=== PATIENT | male | born 1965 | race Caucasian/White ===

== ENCOUNTER 2017-04-20 18:01 | Emergency (ER) | payer MEDICAID, OTHER ==
[2017-04-20 18:01] VITALS: BMI 33.2
[2017-04-20] MEDS ORDERED: Morphine 4 MG/ML VIAL IM ONE (18:56)
[2017-04-20] MEDS ORDERED: Morphine 4 MG/ML VIAL ONE (18:56)
[2017-04-20] MEDS ORDERED: Oxycodone/Acetaminophen 5/325 mg Tab PO STA (19:13)
--- NOTE | 2017-04-20 19:14 | C.PDOC ---
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 Patient denies head injury, LOC, or any other injuries at this time. Time Seen by Provider: 04/20/17 18:54 Chief Complaint (Nursing): Upper Extremity Problem/Injury History Per: Patient History/Exam Limitations: no limitations Onset/Duration Of Symptoms: Hrs (3) Current Symptoms Are (Timing): Still Present Quality: "Pain" Additional History Per: Patient Past Medical History Reviewed: Historical Data, Nursing Documentation, Vital Signs Vital Signs: Last Vital Signs Temp 99.0 F 04/21/17 01:50 Pulse 108 H 04/21/17 01:50 Resp 18 04/21/17 01:50 BP 132/91 H 04/21/17 01:50 Pulse Ox 95 04/21/17 01:50 - Medical History PMH: HTN Surgical History: No Surg Hx Family History: States: Unknown Family Hx - Social History Hx Alcohol Use: Yes (SOCIALLY) Hx Substance Use: No - Immunization History Hx Tetanus Toxoid Vaccination: No Hx Influenza Vaccination: Yes Hx Pneumococcal Vaccination: No Review Of Systems Musculoskeletal: Positive for: Shoulder Pain (right) Neurological: Negative for: Other (head injury, LOC ) Physical Exam - Physical Exam Appears: Non-toxic, No Acute Distress Skin: Normal Color, Warm, Dry Head: Atraumatic, Normacephalic Eye(s): bilateral: Normal Inspection Chest: Symmetrical, No Deformity, No Tenderness Cardiovascular: Rhythm Regular, No Murmur Respiratory: Normal Breath Sounds, No Rales, No Rhonchi, No Wheezing Extremity: Normal ROM, Tenderness (to right shoulder ), Capillary Refill (less than 2 seconds ), Swelling (to right shoulder ) Neurological/Psych: Oriented x3, Normal Speech, Normal Cognition Gait: Steady ED Course And Treatment O2 Sat by Pulse Oximetry: 97 (on RA ) Pulse Ox Interpretation: Normal Progress Note: Right elbow and Right scapula XR ordered and reviewed. Diprivan IV, Morphine IM, Percocet PO, Toradol IVP, and Tylenol PO administered. first attempt to reduce R shoulder disloc with Carmen Maneuver under Conscious sedation with ? clinical reduction but not confirmed on post-redux film #1. 2nd attempt to reduct R shoulder with same maneuver without sedation was actually well tolerated and seemed to have ? clinical reduction, but again not confirmed reduction w post-redux film #2. 3rd attempt to reduce R shoulder with repeat conscious sedation and traction counter traction combined with rotational maneuver did give satisfactory clinical reduction of dislocation and is confirmed by post-redux portable x-ray #3. Reevaluation Time: 00:27 Reassessment Condition: Improved Critical Care Time - Critical Care Note Total Time (in mins): 90 Documented critical care: time excludes all time spent performing seperately billable procedures. Medical Decision Making Medical Decision Making: fall down stairs with R shoulder disloc, without fx, reduced after 3rd attempt w conscious sedation. post-redux neurovascular eval wnl. Disposition Doctor Will See Patient In The: Office Counseled Patient/Family Regarding: Studies Performed, Diagnosis - Disposition Referrals: Bernice Romero MD [Staff Provider] - Disposition: HOME/ ROUTINE Disposition Time: 00:31 Condition: GOOD Additional Instructions: continue ice packs to R shoulder 1/2 hour per hour, nothing hot Motrin 400-600 mg every 6 hours as needed Tramadol 50 mg (narcotic) 1 tab every 4-6 hours as needed Keep arm sling and shoulder immobilizer in place. Do NOT raise R arm over your head for 1 month (high risk of repeat dislocation) Follow-up with Dr. Romero- Orthopedic Surgeon Cash Posting Representative- for further evaluation. Call for an appointment. Follow-up with Enriquea (work-related physicians) to determine your ability to return to work safely. Prescriptions: traMADol [Ultram] 50 mg PO Q6H PRN #20 tab PRN Reason: pain Instructions: Shoulder Dislocation (ED) Forms: [employer] (Nigerian) - Clinical Impression Clinical Impression: Anterior dislocation of right shoulder, History of conscious sedation - Scribe Statement The provider has reviewed the documentation as recorded by the Scribe (Lilibeth Palencia) Provider Attestation: All medical record entries made by the Scribe were at my direction and personally dictated by me. I have reviewed the chart and agree that the record accurately reflects my personal performance of the history, physical exam, medical decision making, and the department course for this patient. I have also personally directed, reviewed, and agree with the discharge instructions and disposition. Pre Procedure Note - History Proposed Procedure: R shoulder reduction of dislocation - Previous Medical/Surgical History Cardiac: Hypertension, Other (DM) Endocrine/Metabolic: Diabetes Pain: 6.Severe Pain - Allergies Allergies: Allergies No Known Allergies Allergy (Verified 04/20/17 18:07) - Current Medications Current Medications: Home Medication List Medication Instructions Recorded Confirmed Type traMADol [Ultram] 50 mg PO Q6H PRN #20 tab 04/21/17 Rx - Physical Exam General Appearance: obese, NAD Mental Status: Alert & Oriented x3 Neuro: WNL Heart: WNL Lungs: WNL GI: WNL - Specialist Directed Exam Abdomen: WNL Integument: WNL GASKET MAKER: WNL : WNL Ortho: Other (+ R shoulder disloc) Eyes: Best Corrected Vision Right - Impression Impression: R shoulder disloc - Date & Time Date: 04/20/17 Time: 20:33 (2nd attempt 2351) ED Procedural Sedation - Pre Anesthesia Assessment Chief Complaint: Upper Extremity Problem/Injury Past Medical History: Medications Reviewed, Allergies Reviewed, Record Review - Physical Exam/Review of Systems Vital Signs Reviewed: Yes Respiratory/Chest: Clear to Auscultation Neurological: GCS=15, CN II-XII Intact, Speech Normal Abdomen: denies: Tenderness Mental Status: Alert and Oriented X 3 - Pre-Procedure Airway Assessment History of difficult intubation or surgical airway (i.e trach):: No Inability to extend neck:: No Mouth opening less than two finger breadth:: Yes Diagnosis of sleep apnea:: No Less than three finger breadth to hyoid bone:: No ASA Criteria: 1 - Healthy, normal. 2 - Mild systemic disease (No functional limitations, mildline obesity, DM withot complications, Hypertention). 3 - Severe systemic disease (Some functional limitation, stable angina, morbid obesity, controlled COPD/Asthma/CHF). 4 - Sever systemic disease constant threat to life (Unstable angina, active symptoms of COPD/Asthma, CHF/ Hypertension. 5 - Moribund ASA Clarification: ASA II Mallampati (airway): Class I - Intra-Procedure (Medications) Medications Given: Discontinued Medications Acetaminophen (Tylenol 325mg Tab) 650 mg PO STAT STA Stop: 04/20/17 18:17 Last Admin: 04/20/17 18:16 Dose: 650 mg MAR Pain/Vitals Document 04/20/17 18:16 [facility] (Rec: 04/20/17 18:31 [facility] [id number]) Pain Reassessment Is This A Pain ReAssessment? No Sleep Is patient sleeping during reassessment? No Presence of Pain Presence of Pain Yes Location Left, Right or Bilateral Right Pain Location Body Site Arm Re-Assess: BELINDA Pain/Vitals Document 04/20/17 19:16 [facility] (Rec: 04/20/17 21:11 [facility] [id number]) Pain Reassessment Is This A Pain ReAssessment? Yes Sleep Is patient sleeping during reassessment? No Presence of Pain Presence of Pain Yes Pain Scale Used Pain Scale Used Numeric Location Left, Right or Bilateral Right Pain Location Body Site Shoulder Ketorolac Tromethamine (Toradol) 30 mg IVP STAT STA Stop: 04/20/17 19:24 Last Admin: 04/20/17 19:44 Dose: 30 mg [facility] Pain Assessment Document 04/20/17 19:44 [facility] (Rec: 04/20/17 19:45 [facility] [id number]) Pain Reassessment Is this a pain reassessment? No Sleep Is patient sleeping during reassessment? No Presence of Pain Presence of Pain Yes Pain Scale Used Pain Scale Used Numeric Location Left, Right or Bilateral Right Pain Location Body Site Shoulder IVP Administration Document 04/20/17 19:44 [facility] (Rec: 04/20/17 19:45 [facility] [id number]) Charges for Administration # of IVP Administrations 1 Re-Assess: [facility] Pain Assessment Document 04/20/17 20:14 [facility] (Rec: 04/20/17 21:11 [facility] [id number]) Pain Reassessment Is this a pain reassessment? Yes Sleep Is patient sleeping during reassessment? No Presence of Pain Presence of Pain Yes Pain Scale Used Pain Scale Used Numeric Location Left, Right or Bilateral Right Pain Location Body Site Shoulder Morphine Sulfate (Morphine) 4 mg IM ONCE ONE Stop: 04/20/17 18:57 Last Admin: 04/20/17 18:55 Dose: 4 mg BELINDA Pain Assessment Document 04/20/17 18:55 [facility] (Rec: 04/20/17 19:00 [facility] [id number]) Pain Reassessment Is this a pain reassessment? Yes IM Administration Charges Document 04/20/17 18:55 [facility] (Rec: 04/20/17 19:00 [facility] [id number]) Injection Site [facility] Injection Site Left Deltoid Charges for Administration # of IM Administrations 1 Re-Assess: [facility] Pain Assessment Document 04/20/17 19:25 [facility] (Rec: 04/20/17 21:10 [facility] [id number]) Pain Reassessment Is this a pain reassessment? Yes Sleep Is patient sleeping during reassessment? No Presence of Pain Presence of Pain Yes Pain Scale Used Pain Scale Used Numeric Location Left, Right or Bilateral Right Pain Location Body Site Shoulder Oxycodone/Acetaminophen (Percocet 5/325 Mg Tab) 1 tab PO STAT STA Stop: 04/20/17 19:14 Last Admin: 04/20/17 21:10 Dose: 1 tab [facility] Pain Assessment Document 04/20/17 21:10 [facility] (Rec: 04/20/17 21:10 [facility] [id number]) Pain Reassessment Is this a pain reassessment? Yes Sleep Is patient sleeping during reassessment? No Presence of Pain Presence of Pain Yes Pain Scale Used Pain Scale Used Numeric Location Left, Right or Bilateral Right Pain Location Body Site Shoulder Re-Assess: [facility] Pain Assessment Document 04/20/17 22:10 [facility] (Rec: 04/21/17 00:07 [facility] [id number]) Pain Reassessment Is this a pain reassessment? Yes Sleep Is patient sleeping during reassessment? No Presence of Pain Presence of Pain Yes Pain Scale Used Pain Scale Used Numeric Location Left, Right or Bilateral Right Pain Location Body Site Shoulder Propofol (Diprivan) 200 mg IV ONCE STA Stop: 04/20/17 19:24 Last Admin: 04/20/17 20:39 Dose: 200 mg eMAR Start Stop Document 04/20/17 20:39 [facility] (Rec: 04/20/17 21:10 [facility] [id number]) Intravenous Solution Start Date 04/20/17 Start Time 20:39 End Date 04/20/17 End time 20:43 Total Infusion Time 4 Propofol (Diprivan) 200 mg IV STAT STA Stop: 04/20/17 23:31 Last Admin: 04/20/17 23:52 Dose: 200 mg eMAR Start Stop Document 04/20/17 23:52 [facility] (Rec: 04/21/17 00:15 [facility] [id number]) Intravenous Solution Start Date 04/20/17 Start Time 23:52 End Date 04/20/17 End time 23:58 Total Infusion Time 6 - Post-Procedure Post Procedure Note: adequate anesthesia, well tolerated, emerged immediatly without complications
[2017-04-20] MEDS ORDERED: Propofol 10 mg/ml Inj (20 ML) IV STA ×2 (19:23→23:30)
[2017-04-20] MEDS ORDERED: Propofol 10 mg/ml Inj (20 ML) ONE ×2 (19:31→22:46)
[2017-04-20] MEDS ORDERED: Sodium Chloride 0.9% 1,000 ML ONE (20:25)
[2017-04-20] MEDS ORDERED: Oxycodone/Acetaminophen 5/325 mg Tab ONE (21:10)
[2017-04-21 01:51] VITALS: BP 132/91; PULSE 108; RESP 18; TEMP 99
--- NOTE | 2017-04-21 10:41 | RAD ---
PROCEDURE: Radiographs of the Right Shoulder HISTORY: 3rd Redux COMPARISON: Comparison made with radiographs of the right shoulder 04/20/2017 at 2133 hours. FINDINGS: BONES: No definitive evidence of acute displaced fracture nor dislocation. If symptoms persist consider followup CT scan or MRI. JOINTS: There has been interval reduction previously noted anteriorly inferiorly dislocated right humeral head. Minor degenerative changes right acromioclavicular joint SOFT TISSUES: Soft tissues appear grossly unremarkable. OTHER FINDINGS: None. IMPRESSION: Status post reduction previously noted anteriorly inferiorly dislocated right humeral head with respect to the glenoid . No evidence of acute displaced fracture.
--- NOTE | 2017-04-21 10:47 | RAD ---
PROCEDURE: Radiographs of the right humerus. HISTORY: S/P FALL COMPARISON: None. FINDINGS: BONES: No acute fracture. Possible anterior dislocation glenohumeral articulation. SOFT TISSUES: Normal. OTHER FINDINGS: None. IMPRESSION: No acute fracture. Possible glenohumeral anterior dislocation
--- NOTE | 2017-04-21 10:51 | RAD ---
PROCEDURE: Radiographs of the Right Shoulder HISTORY: S/P FALL COMPARISON: No prior. FINDINGS: BONES: Anterior dislocation glenohumeral articulation. No humeral head fracture appreciated. There is questionable loss of normal cortex medially inferior glenoid. Possible Bankart deformity. JOINTS: As above. Minimal acromioclavicular degenerative arthropathy. SOFT TISSUES: Normal. OTHER FINDINGS: None. IMPRESSION: Anterior glenohumeral dislocation. Questionable Bankart deformity. No humeral fracture appreciated.
--- NOTE | 2017-04-21 10:58 | RAD ---
PROCEDURE: Right shoulder HISTORY: post-redux COMPARISON: 04/20/2017 at 7:04 p.m. TECHNIQUE: Single AP view, status post close reduction FINDINGS: Persistent anterior dislocation glenohumeral articulation. No gross fracture appreciated. IMPRESSION: Persistent anterior glenohumeral dislocation
--- NOTE | 2017-04-21 11:00 | RAD ---
PROCEDURE: Radiographs of the Right Shoulder HISTORY: re-re-dux COMPARISON: 04/20/2017 at 9:09 p.m. FINDINGS: BONES: No fracture JOINTS: Persistent anterior glenohumeral dislocation SOFT TISSUES: Normal. OTHER FINDINGS: None. IMPRESSION: Persistent anterior glenohumeral dislocation
[2017-04-21 17:17] VITALS: O2SAT 97
== END 2017-04-21 03:54 | disposition home or self-care (01) ==
LOC: C.ER 18:01
DX: S43.084A Other dislocation of right shoulder joint, initial encounter (principal); W10.9XXA Fall (on) (from) unspecified stairs and steps, initial encounter
CPT/HCPCS: 23650; 73020; 73030; 73060; 94770; 96372; 96374; 99285; J1885; J2270; J2704

== ENCOUNTER 2018-02-09 08:23 | Day surgery (SDC) | payer OTHER ==
[2018-02-07 12:30] VITALS: BMI 35.2
[2018-02-09] MEDS ORDERED: ceFAZolin IV 1 gm in Dextrose 2 GM/100 ML BAG IVPB ONE (09:58)
[2018-02-09] MEDS ORDERED: Propofol 10 mg/ml Inj (20 ML) ONE (10:03)
[2018-02-09] MEDS ORDERED: Midazolam 2 MG/2 ML VIAL ONE (10:06)
[2018-02-09] MEDS: Lidocaine/Epinephrine 1% 1:100000 10 ML IJ ONE ×2 (10:33→10:55)
[2018-02-09] MEDS: Bupivacaine 0.25% 20 ML INJ IJ ONE ×4 (10:33→12:56)
[2018-02-09] MEDS ORDERED: Methylene Blue 10 mg/mL(10ml) IV ONE (11:22)
[2018-02-09] MEDS ORDERED: Rocuronium 10 mg/ml (5 ml) ONE (11:40)
[2018-02-09] MEDS ORDERED: Bacitracin 500 Units/gm Oint Foilpak UD ONE (13:35)
[2018-02-09] MEDS ORDERED: Lactated Ringer's 1,000 ML IV ONE (13:48)
[2018-02-09] MEDS ORDERED: HYDROmorphone 0.5 mg/0.5 ml ISec IVP PRN (13:51)
[2018-02-09] MEDS ORDERED: Oxycodone/Acetaminophen 5/325 mg Tab PO PRN (13:52)
--- NOTE | 2018-02-09 13:56 | PCM.SURG1 ---
Surgeon's Initial Post Op Note - Surgeon's Notes Surgeon: Dr. Boyd Toxicology Supervisor: LUPE Goodson; Janice Mejia, PGY2 Type of Anesthesia: General Endo Pre-Operative Diagnosis: right inguinal hernia Operative Findings: right large indirect and direct inguinal hernia Post-Operative Diagnosis: same Operation Performed: right Robotic assisted laparoscopic inguinal hernia repair with mesh Specimen/Specimens Removed: cord lipoma Estimated Blood Loss: EBL {In ML}: 10 Blood Products Given: N/A Drains Used: No Drains Post-Op Condition: Fair Date of Surgery/Procedure: 02/09/18 Time of Surgery/Procedure: 10:00
[2018-02-09 15:35] VITALS: RESP 18
[2018-02-09 16:03] VITALS: BP 130/70; PULSE 80; TEMP 97.6; O2SAT 97
--- NOTE | 2018-02-12 04:02 | OP ---
PROCEDURE DATE: 02/09/2018 PREOPERATIVE DIAGNOSIS: Right inguinal hernia, possible bilateral. POSTOPERATIVE DIAGNOSES: 1. Right incarcerated direct inguinal hernia. 2. Extensive incarceration of the large amount of omentum as well as preperitoneal fat. 3. Extensive postinflammatory and postoperative adhesions. PROCEDURE DONE: 1. Robotic incarcerated right direct inguinal hernia repair with a mesh. 2. Robotic exploration of the left inguinal hernial space. 3. Robotic extensive enterolysis and lysis of adhesion. 4. Laparoscopic bilateral TAP block placement. SURGEON: Herbert Alberto MD HOBBING PRESS OPERATOR: 1. LUPE Goodson 2. Janice Mejia DO, PGY-3 Resident ANESTHESIA: General endotracheal tube anesthesia. ESTIMATED BLOOD LOSS: Around 20 mL. DRAINS: None. PATHOLOGY: The large amount of fat was sent to Pathology. COMPLICATIONS: None. INTRAOPERATIVE FINDINGS: The patient had large preperitoneal as well as omental incarceration into the direct inguinal hernial sac and the patient also had extensive attachment into the left inguinal floor that was lysed and the exploration was done and extensive enterolysis and lysis of adhesion was done and on intraoperative steps, this 52-year-old male who was diagnosed with right inguinal hernia. The patient is status post robotic colon resection and the patient was consented for the robotic right inguinal hernia repair with mesh, brought to the OR, placed supine on operating table. After induction of anesthesia, the abdomen was prepped and draped in usual sterile fashion. Supraumbilical incision was made using the Leann technique. Peritoneal cavity was entered. Pneumo was created. Another three 8-mm port was placed in upper abdomen. Robot was brought in. Camera arm as well as arm 1 and arm 2 was docked. The patient had extensive incarceration of the omentum and preperitoneal fat that was reduced back into peritoneal cavity. Lysis of adhesion was done and the patient also had a large amount of adhesion in the left inguinal space and lysis of adhesion was done. There was no left inguinal hernia identified. Proper exploration was done intraperitoneally as well as preperitoneal to identify the inguinal hernia on the left side and there was no hernia identified. Now, the dissection was carried down into the space of Retzius. The lateral abdominal wall on the right side was dissected. The peritoneum was from the vas deferens and spermatic cord vessels and large amount of direct defect was identified and the whole preperitoneal fat was reduced back into peritoneal cavity. Inferior dissection was done and now the large 10 x 15 mesh was placed and after proper implantation of the mesh, peritoneum was sutured. Due to the extensive adhesions, due to extensive size of the hernial sac, approximately 40 to 60 minute extra time was spent for the routine procedure. Before placing the mesh, the transversalis fascia of the right direct inguinal hernia was tacked in the peritoneal cavity to adama the fascia and after that the robot was undocked. All the instrument was taken out. Laparoscope was used to give bilateral TAP block and 30:30 mL of Marcaine was injected and after that all the port was taken out under vision. Pneumo was deflated. Umbilical port site was closed in two-layer fascia with 0 Vicryl interrupted sutures, skin with 4-0 Monocryl and dry sterile dressing was applied. The patient tolerated the procedure well. Count of instrument and gauze was correct. There was no apparent complication. The patient was reversed from anesthesia and sent to the postanesthesia care unit in stable condition. Herbert Alberto MD TREMAINE
== END 2018-02-09 16:20 | disposition home or self-care (01) ==
LOC: C.SDS 08:23
PROVIDERS: ATTEND Surgery Surgical Critical Care
DX: K40.90 Unilateral inguinal hernia, without obstruction or gangrene, not specified as recurrent (principal)
CPT/HCPCS: 49650; 82948; 88304; J0690; J2250; J2704; J3010; J7120

== ENCOUNTER 2018-04-11 09:06 | Day surgery (SDC) | payer OTHER ==
[2018-02-07 12:30] VITALS: BMI 35.2
[2018-04-11 09:53] VITALS: O2SAT 98
[2018-04-11] MEDS ORDERED: Lidocaine/Epinephrine 1% 1:100000 10 ML IJ ONE ×2 (10:07→10:57)
[2018-04-11] MEDS ORDERED: Bupivacaine 0.25% 20 ML INJ IJ ONE (10:07)
[2018-04-11] MEDS ORDERED: ceFAZolin 1 gm in NS 2 GM/200 ML BAG IVPB ONE (10:07)
[2018-04-11] MEDS ORDERED: Midazolam 2 MG/2 ML VIAL ONE (10:22)
[2018-04-11] MEDS ORDERED: Propofol 10 mg/ml Inj (20 ML) ONE (10:22)
[2018-04-11 12:00] VITALS: BP 117/71; PULSE 89; RESP 18; TEMP 98
--- NOTE | 2018-04-11 12:07 | PCM.SURG1 ---
Surgeon's Initial Post Op Note - Surgeon's Notes Surgeon: Thelma Alberto MD Hotel Director: CORTNEY Goodson Type of Anesthesia: Moderate Sedation{RN} Pre-Operative Diagnosis: Sebaceous cyst of right upper thigh. Sebaceous cyst of Right arm Operative Findings: Sebaceous cyst of right upper thigh 3x2 cm. Sebaceous cyst of Right arm 2x2 cm Post-Operative Diagnosis: Sebaceous cyst of right upper thigh 3x2 cm. Sebaceous cyst of Right arm 2x2 cm Operation Performed: Excision of Sebaceous cyst of right upper thigh 3x2 cm. Layered closure of right upper thigh wound 3x2 cm. Excision of Sebaceous cyst of Right arm 2x2 cm Specimen/Specimens Removed: Sebaceous cyst of right upper thigh. Sebaceous cyst of Right arm Estimated Blood Loss: EBL {In ML}: 10 Blood Products Given: N/A Drains Used: No Drains Post-Op Condition: Good Date of Surgery/Procedure: 04/11/18 Time of Surgery/Procedure: 12:07
--- NOTE | 2018-04-16 04:23 | OP ---
PROCEDURE DATE: 04/11/2018 PREOPERATIVE DIAGNOSES: 1. Sebaceous cyst of the right upper thigh and groin area, approximately 3 x 2 cm size. 2. Sebaceous cyst of the right arm, 1 x 1 cm size. POSTOPERATIVE DIAGNOSES: 1. Sebaceous cyst of the right upper thigh and groin area, approximately 3 x 2 cm size. 2. Sebaceous cyst of the right arm, 1 x 1 cm size. PROCEDURES DONE: 1. Excision of sebaceous cyst of the right upper thigh and groin area, 3 x 2 cm size. 2. Layered closure of the wound of the right upper thigh, 3 x 2 x 2 cm size, simple. 3. Excision of sebaceous cyst of the right arm, 1 x 1 cm size. ANESTHESIA: Local anesthesia plus sedation. ESTIMATED BLOOD LOSS: Around 10 mL. DRAINS: None. PATHOLOGY: 1. Sebaceous cyst of the right upper thigh. 2. Sebaceous cyst of the right arm, was sent to the pathology. COMPLICATIONS: None. INTRAOPERATIVE FINDINGS: The patient had approximately 3 x 2 cm sebaceous cyst of the right upper thigh and groin area, and the patient also had 1 x 1 cm sebaceous cyst of the right arm. DESCRIPTION OF PROCEDURE: On intraoperative steps, this is a 53-year-old male who was diagnosed with a sebaceous cyst of the right arm and the right upper thigh, and the patient was consented for excision of both sebaceous cysts, was brought to the OR, placed supine on the operating table. After induction of the sedation, the right upper thigh and the groin area as well as the right arm was prepped and draped in the usual sterile fashion. Local anesthesia was injected. An elliptical incision was made and sebaceous cyst was completely excised, and upper and lower flap was created, and the multilayer closure of the wound was done. The deep subcu was sutured with 2-0 Vicryl, superficial subcu with 3-0 Vicryl, skin with a 4-0 Monocryl. Dry sterile dressing was applied. Now, the elliptical incision was made surrounding the right arm sebaceous cyst. The sebaceous cyst was completely excised, and wound was closed in a two-layer, subcu with 3-0 Vicryl, skin with 4-0 Monocryl, and dry sterile dressing was applied. The patient tolerated the procedure well. Count of instrument and gauze was correct. There was no apparent complication. The patient was reversed from sedation and sent to the postanesthesia care unit in stable condition. Herbert Alberto MD
== END 2018-04-11 12:35 | disposition home or self-care (01) ==
LOC: C.SDS 09:06
PROVIDERS: ATTEND Surgery Surgical Critical Care
DX: L72.3 Sebaceous cyst (principal); I10 Essential (primary) hypertension
CPT/HCPCS: 11401; 11406; 12034; 82948; 88304; J0690; J2250; J2704; J3010